=== PATIENT | female | born 1950 ===

== ENCOUNTER 2018-10-26 08:08 | Emergency (ER) | payer OTHER ==
[~2018-10-26] VITALS: Ht 154.9 cm; Wt 71.2 kg
[~2018-10-26 08:08] MED LIST: OSEL75CA PO; ZYNCOF 20-400120 ML PO
[2018-10-26] MEDS ORDERED: SIMVASTATIN40 MG PO (08:22)
[2018-10-26] MEDS ORDERED: VASOTEC20 MG PO (08:23)
[2018-10-26] MEDS ORDERED: CRESTOR20 MG PO (08:24)
[2018-10-26] MEDS ORDERED: METFORMIN HCL500 MG PO (08:24)
[2018-10-26] MEDS ORDERED: KETO10TA2 PO (11:03)
[2018-10-26] MEDS ORDERED: SKELAXIN800 MG PO (11:03)
[2018-10-26] MEDS ORDERED: METAXALONE800 MG (19:29)
== END 2018-10-26 21:39 | disposition home or self-care (01) ==
LOC: ER 08:08
DX: M25.561 Pain in right knee (principal); M79.604 Pain in right leg; I16.0 Hypertensive urgency; I10 Essential (primary) hypertension

== ENCOUNTER 2018-10-26 18:41 | Emergency (ER) | payer OTHER ==
[~2018-10-26] VITALS: Ht 154.9 cm; Wt 71.2 kg
[~2018-10-26 18:41] MED LIST changes: +CRESTOR20 MG PO; +KETO10TA2 PO; +METFORMIN HCL500 MG PO; +SIMVASTATIN40 MG PO; +SKELAXIN800 MG PO; +VASOTEC20 MG PO
[2018-10-26] MEDS ORDERED: METAXALONE800 MG (19:29)
== END 2018-10-26 21:40 | disposition home or self-care (01) ==
LOC: ER 18:41
DX: M79.604 Pain in right leg (principal)